=== PATIENT | male | born 1980 | race Caucasian/White ===

== ENCOUNTER 2023-02-26 15:35 | Emergency (ER) | payer OTHER, SELFPAY ==
--- NOTE | ~2023-02-26 | CT_ITS ---
EXAMINATION: CT brain wo con DATE: 02/26/2023 16:01 INDICATION: head injury . TECHNIQUE: Computed tomography (CT) of the head was performed without intravenous contrast. The mA wa s adjusted according to patient size. Iterative reconstruction technique was employed. The dose-lengt h product was 681.00 mGy-cm. COMPARISON: None. FINDINGS: No acute intracranial hemorrhage or extra-axial fluid collection. No hydrocephalus, mass, or herniation. No acute ischemic infarct. Unremarkable dural venous sinus attenuation. No acute osseous abnormality. Small left scalp laceration near the vertex. The aerated spaces are clear. IMPRESSION: No acute intracranial process. Reviewed, dictated and finalized at location K.
[2023-02-26 15:38] VITALS: BP 138/90; PULSE 71; RESP 16; TEMP 36.6; O2SAT 98
--- NOTE | 2023-02-26 16:49 | ED.GENADULT ---
HPI - General Adult General Chief complaint: Head Injury Stated complaint: head injury/laceration Time Seen by Provider: 02/26/23 15:51 History of Present Illness HPI narrative: Reymundo Rangel is a 43 y/o male who presents with reports of hitting his head at around 1530. He states that he bent over to miner pick garlic and he came back up striking the top of his head on an open cabinet door and then fell onto his left side. Denies LOC, does not take any blood thinners. Denies any other injuries, no vision changes/ no neck pain or back pain Related Data Allergies Allergy/AdvReac Type Severity Reaction Status Date / Time No Known Allergies Allergy Verified 02/26/23 15:51 Review of Systems Review of Systems: CONSTITUTIONAL: Denies fever, chills, or sweats. EYES: Denies visual changes, redness, or discharge. ENT: Denies rhinorrhea, congestion, sore throat, or otalgia. CARDIOVASCULAR: Denies chest pain, palpitations, or edema. RESPIRATORY: Denies cough or dyspnea. GASTROINTESTINAL: Denies abdominal pain, nausea, vomiting, or diarrhea. GENITOURINARY: Denies dysuria or hematuria. SKIN: Denies rash or itching. MUSCULOSKELETAL: Denies back pain, joint pain, or myalgia. NEUROLOGIC: Reports head pain after striking his head on the corner of a cabinet at 1530 today denies numbness, dizziness, or weakness. PSYCHIATRIC: Denies anxiety or depression. Exam Narrative: GENERAL: Well-appearing, well-nourished, and in no acute distress. HEAD: Normocephalic, 0.5cm laceration noted to the top left area of his scalp no active bleeding noted. EYES: PERRLA and EOMI. ENT: Nares clear, no rhinorrhea or epistaxis. Mucous membranes moist. Oropharynx without tonsillar hypertrophy exudate or other lesions. Bilateral TMs pearly espinosa nonbulging NECK: Supple. No adenopathy or masses. No carotid bruits or JVD CHEST: Clear to auscultation. No respiratory distress. No wheezes rales or rhonchi HEART: Regular rate and rhythm. No murmur heard. Normal peripheral pulses. ABDOMEN: Soft, nontender, nondistended, normal active bowel sounds. EXTREMITIES: Normal range of motion. No edema. SKIN: Warm, dry, no rash. NEURO: No focal deficits. Alert and oriented x3. PSYCH: Normal mood and affect. Course Vital Signs Vital signs: Vital Signs Temperature 36.6 C 02/26/23 15:38 Pulse Rate 71 02/26/23 15:38 Respiratory Rate 16 02/26/23 15:38 Blood Pressure 138/90 02/26/23 15:38 Pulse Oximetry 98 02/26/23 15:38 Oxygen Delivery Room Air 02/26/23 15:38 Temperature 36.6 C 02/26/23 15:38 Pulse Rate 71 02/26/23 15:38 Respiratory Rate 16 02/26/23 15:38 Blood Pressure 138/90 02/26/23 15:38 Pulse Oximetry 98 02/26/23 15:38 Oxygen Delivery Room Air 02/26/23 15:38 Procedures Laceration Laceration 1: Date: 02/26/23 Time: 17:22 Site: scalp Side (If applicable): left Size (cm): 0.5 Depth: simple, single layer Pre-repair: irrigated ====== Skin Level ====== Skin layer closed with: barrington (one staple ) ====== Subcutaneous Layer ====== ====== Muscle Layer ====== ====== Tendon Layer ====== Medical Decision Making MDM Narrative Medical decision making narrative: On exam pt is noted to have maybe a 0.5cm laceration to the top left of his scalp, no active bleeding No cervical/ thoracic/ lumbar spinal tenderness noted on exam Patient is updated on TDap plan to cleanse area and place one staple check Head CT and treat his pain Discussed plan with pt and all questions answered. Head CT is negative , laceration thoroughly cleansed and one staple placed, pt tolerated well Denies needing anything further Differential Diagnosis Differential Diagnosis: brain injury/ concussion/ laceration/ head contusion Medical Records Medical records reviewed: Yes I reviewed the external patient's medical records. Vital Signs Vital Signs: Vital Sign
[2023-02-26] MEDS: HYDROcodone/acetaminophen (*CRX) 5-325 MG TABLET 1 TAB PO (17:08)
== END 2023-02-26 17:36 | disposition home or self-care (01) ==
PROVIDERS: Emergency Provider Nurse Practitioner Family
DX: S06.0X0A Concussion without loss of consciousness, initial encounter (principal); S01.01XA Laceration without foreign body of scalp, initial encounter; W22.8XXA Striking against or struck by other objects, initial encounter
CPT/HCPCS: 12001; 70450; 99284; A9270

== ENCOUNTER 2023-04-04 01:43 | Day surgery (SDC) | payer OTHER, SELFPAY ==
[2023-03-28 13:33] VITALS: BMI 27.1
[2023-04-04 09:41] VITALS: BP 134/87; PULSE 86; RESP 18; TEMP 36.3; O2SAT 99
[2023-04-04] MEDS: LACTATED RINGERS 1,000 ML 150 ML IV CONT (09:55)
--- NOTE | 2023-04-04 10:19 | P.PNAN_ITS ---
Anes - Initial Pre Proc Eval Procedure: Operation Date: 04/04/23 10:30 Proposed Procedures p Colonoscopy - Jacoby Anders MD Date/Time: 04/04/23 10:19 Surgeon: Jacoby Anders MD Pre Op Diagnosis: Melena,FamHx of malignant neoplasm digestive organ Patient Data Age: 43 Gender: M Height: 1.83 m Weight: 91.5 kg Last Vital Signs Temp 97.3 F L 04/04/23 09:41 Pulse 86 04/04/23 09:41 Resp 18 04/04/23 09:41 BP 134/87 04/04/23 09:41 Pulse Ox 99 04/04/23 09:41 O2 Del Method Room Air 04/04/23 09:41 Allergies Allergy/AdvReac Type Severity Reaction Status Date / Time No Known Allergies Allergy Verified 04/04/23 09:40 Home Medications Medication Instructions Recorded Confirmed Type lisinopril 30 mg tablet 30 mg PO DAILY 03/28/23 03/28/23 History Patient hx anesthesia problems: none Family hx anesthesia problems: none Results Review: All pre-operative results and documents have been reviewed as part of the pre- operative evaluation. [facility] Family History Family History (Updated 03/06/23 @ 12:36 by Tatianna Cotto CNA) Mother Hypertension Depression Grandparent Hypertension Social History Social History (Updated 03/06/23 @ 12:35 by Tatianna Cotto CNA) Years smoked: 7 Smoking status: Former smoker Tobacco type: smokeless tobacco Smokeless tobacco user: chewing tobacco Second hand tobacco smoke exposure: No Alcohol intake: current Substance use: current Substance use type: marijuana Other substance usage details: ONCE A WEEK Living arrangements: alone Occupation/Education: occupation Gender identity (if verbalized by the patient): Male Spiritual care concerns: No Anes - Eval Final PreProcedure Day of Procedure 04/04/23 10:19 Patient weight: normal Heart: regular rate and rhythm Lungs: clear to auscultation Airway: Mallampati scale class II Neurological: alert and oriented Last oral intake: >/= 8 hours ASA classification: II Emergent: no Anesthetic plan: proceed Anesthesia type and monitoring: general GIVS and standard monitoring Results Review: All pre-operative results and documents have been reviewed as part of the pre-operative evaluation. Informed Consent: The patient's anesthetic plan and its attendant risks and benefits were discussed with the patient/family/POA. Questions were solicited and answers provided to the satisfaction of the patient/family/POA.
--- NOTE | 2023-04-04 10:20 | PM.HPGS ---
History of Present Illness History of Present Illness Consent: Risks, benefits, and alternatives have been discussed and questions answered. Patient agrees to proceed with procedure. Chief complaint: Melena,FamHx of malignant neoplasm digestive organ Narrative: Reymundo Rangel is a 43 year old male here for first colonoscopy, noted intermittent rectal bleeding Review of Systems Constitutional: Constitutional: Denies headache(s) and Denies weakness Eyes: Eyes: Denies blurry vision ENT: Reports Normal hearing present, Denies headache(s) and Denies neck pain Cardiovascular: Cardiovascular: Denies chest pain and Denies dyspnea Respiratory: Respiratory: Denies dyspnea Gastrointestinal: Gastrointestinal: Reports no additional gastrointestinal complaints Genitourinary: Genitourinary: Denies dysuria Musculoskeletal: Musculoskeletal: Denies neck pain Integumentary/Breasts: Skin/Breast: Denies dry skin Neurologic: Reports Normal hearing present, Denies headache(s) and Denies weakness Psychiatric: Psychiatric: Denies anxiety Endocrine: Endocrine: Denies change in body appearance Hematologic/Lymphatic: Hematologic/Lymphatic: Denies easy bleeding Allergic/Immunologic: Allergic/Immunologic: Denies urticaria PMFSH Past Medical History Medical History (Updated 04/04/23 @ 10:20 by Jacoby Anders MD) Blood in stool Family History Family History (Updated 03/06/23 @ 12:36 by Tatianna Cotto CNA) Mother Hypertension Depression Grandparent Hypertension Social History Social History (Updated 03/06/23 @ 12:35 by Tatianna Cotto CNA) Years smoked: 7 Smoking status: Former smoker Tobacco type: smokeless tobacco Smokeless tobacco user: chewing tobacco Second hand tobacco smoke exposure: No Alcohol intake: current Substance use: current Substance use type: marijuana Other substance usage details: ONCE A WEEK Living arrangements: alone Occupation/Education: occupation Gender identity (if verbalized by the patient): Male Spiritual care concerns: No Meds Home Medications and Allergies Home Medications Medication Instructions Recorded Confirmed Type lisinopril 30 mg tablet 30 mg PO DAILY 03/28/23 03/28/23 History Allergies Allergy/AdvReac Type Severity Reaction Status Date / Time No Known Allergies Allergy Verified 04/04/23 09:40 Vital Signs Vital Signs - 24 hr 04/04/23 09:41 Temperature 97.3 F L Pulse Rate 86 Respiratory Rate 18 Blood Pressure 134/87 Pulse Oximetry 99 Oxygen Delivery Room Air Exam Const: General: comfortable and no acute distress HENMT: Face/Nose/Sinus: Normal nares present Eyes: General: appearance normal, both eyes and all related structures Neck: Neck: no JVD Resp: Auscultation: clear to auscultation bilaterally Cardio: Rate: regular rate Rhythm: regular rhythm GI: Inspection: non-distended GI Palp: Yes Soft to palpation Skin: General skin exam: normal color Neuro: General: gait normal Speech: normal speech Extrem: General: normal to inspection Psych: Mental Status: mental status grossly normal Assessment and Plan Assessment and plan (1) Blood in stool: Code(s): K92.1 - Melena Status: Acute Assessment and Plan: colonoscopy
[2023-04-04 10:39] VITALS: BP 124/87; PULSE 82; RESP 20; O2SAT 97
[2023-04-04 10:49] VITALS: BP 131/97; PULSE 70; RESP 20; O2SAT 98
[2023-04-04 10:59] VITALS: BP 133/95; PULSE 64; RESP 20; O2SAT 100
== END 2023-04-04 11:07 | disposition home or self-care (01) ==
PROVIDERS: PCP Nurse Practitioner Family; Visit Provider Internal Medicine Gastroenterology
PROC: 0DJD8ZZ Inspection of Lower Intestinal Tract, Via Natural or Artificial Opening Endoscopic (ICD-10-PCS; CPT 45378; principal; 2023-04-04 10:30)
DX: Z12.11 Encounter for screening for malignant neoplasm of colon (principal); D12.4 Benign neoplasm of descending colon; F12.90 Cannabis use, unspecified, uncomplicated; Z80.0 Family history of malignant neoplasm of digestive organs
CPT/HCPCS: 45385; 88305; J2704; J7120